=== PATIENT | male | born 1985 | race Caucasian/White ===

== ENCOUNTER 2016-10-27 14:32 | Inpatient (IN) | payer MEDICAID ==
[2016-10-27 15:16] LABS: BASO # 0.1 K/uL (0.0-0.2); BASO % 0.8 % (0.0-2.0); EOS # 0.1 K/uL (0.0-0.7); EOS % 1.5 % (0.0-4.0); HEMATOCRIT 47.9 % (35.0-51.0); LYMPH # 2.1 K/uL (1.0-4.3); LYMPH % 21.3 % (20.0-40.0); MEAN CELL VOLUME 83.2 fL (80.0-94.0); MEAN CORPUSCULAR HEMOGLOBIN 27.9 pg (27.0-31.0); MEAN CORPUSCULAR HGB CONC 33.5 g/dL (33.0-37.0); MEAN PLATELET VOLUME 10.2 fL (7.2-11.7); MONO # 1.1 K/uL (0.0-0.8); MONO % 11.8 % (0.0-10.0); NRBC % 0.1 % (0.0-2.0); RED CELL DISTRIBUTION WIDTH 12.9 % (11.5-14.5); WHITE BLOOD COUNT 9.7 K/uL (4.8-10.8)
[2016-10-27 15:30] LABS: CHLORIDE 99 mmol/L (98-107)
[2016-10-27 15:31] LABS: POTASSIUM 4.1 mmol/L (3.6-5.2); SODIUM 141 mmol/L (132-148)
[2016-10-27 15:33] LABS: ALB/GLOB RATIO 1.2 (1.0-2.1); ALKALINE PHOSPHATASE 101 U/L (38-126); AST/SGOT 16 U/L (17-59); BILIRUBIN,TOTAL 0.9 mg/dL (0.2-1.3); CARBON DIOXIDE 24 mmol/L (22-30); GFR AFRICAN-AMERICAN > 60; TOTAL PROTEIN 8.3 g/dL (6.3-8.3)
[2016-10-27 15:34] LABS: ALT/SGPT 26 U/L (21-72); BLOOD UREA NITROGEN 10 mg/dL (9-20); GLUCOSE,RANDOM 97 mg/dL (75-110)
[2016-10-27 15:38] LABS: ALCOHOL SERUM < 10 mg/dl (0-10)
--- NOTE | 2016-10-27 15:40 | C.PDOC ---
History Of Present Illness 31-year-old male, presents to the emergency department with complaints of restlessness. Patient states "I haven't slept in ten days, and I just want to sleep for 48 hours." Patient denies suicidal ideation, but is unclear whether he wants to harm others. Patient notes that he is hearing something in his head. No other complaints at this time. He states that he has no pain or discomfort. He does not answer question with any detail. 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 He seems very internally preoccupied with a flat affect. Time Seen by Provider: 10/27/16 14:38 Chief Complaint (Nursing): Psychiatric Evaluation History Per: Patient History/Exam Limitations: no limitations Onset/Duration Of Symptoms: Days Current Symptoms Are (Timing): Still Present Past Medical History Reviewed: Historical Data, Nursing Documentation, Vital Signs Vital Signs: Last Vital Signs Temp 97.4 F L 10/27/16 14:39 Pulse 103 H 10/27/16 14:39 Resp 20 10/27/16 14:39 BP 131/93 H 10/27/16 14:39 Pulse Ox 96 10/27/16 16:57 Family History: States: Unknown Family Hx - Social History Hx Alcohol Use: No Hx Substance Use: No - Immunization History Hx Tetanus Toxoid Vaccination: No Hx Influenza Vaccination: No Hx Pneumococcal Vaccination: No Review Of Systems Except As Marked, All Systems Reviewed And Found Negative. Constitutional: Negative for: Fever, Chills Cardiovascular: Negative for: Chest Pain, Palpitations Skin: Negative for: Rash Neurological: Negative for: Headache, Dizziness Psych: Negative for: Suicidal ideation Physical Exam - Physical Exam Appears: Non-toxic, No Acute Distress, Other (flat affect) Skin: Warm, Dry, No Rash Head: Atraumatic, Normacephalic Eye(s): bilateral: Normal Inspection, PERRL Nose: Normal Oral Mucosa: Moist Lips: Normal Appearing Neck: Normal ROM Cardiovascular: Rhythm Regular Respiratory: Normal Breath Sounds, No Accessory Muscle Use Extremity: Normal ROM Neurological/Psych: Oriented x3, Normal Speech ED Course And Treatment - Laboratory Results Result Diagrams: 10/27/16 15:12 10/27/16 15:12 Lab Interpretation: No Acute Changes O2 Sat by Pulse Oximetry: 96 Pulse Ox Interpretation: Normal - CT Scan/US CT head Other Rad Studies (CT/US): Read By Radiologist, Radiology Report Reviewed CT/US Interpretation: Accession No. : [id number]. Patient Name / ID : ADI [id number] / [id number]. Exam Date : 10/27/2016 15:59:22 ( Approved ). Study Comment : Sex / Age : M / 31Y. Creator : Meena Moy MD. Dictator : Meena Moy MD. Hearing Health Technician : Tanning Wheel Filler : Meena Moy MD. Approver2 : Report Date : 10/27/2016 16:35:14. My Comment : . PROCEDURE: CT HEAD WITHOUT CONTRAST. HISTORY: altered behavior, ? hallucinating. COMPARISON: None available. TECHNIQUE: Axial computed tomography images were obtained through the head/brain without intravenous contrast. Radiation dose: Total exam DLP = 960.17 mGy-cm. This CT exam was performed using one or more of the following dose reduction techniques: Automated exposure control, adjustment of the mA and/or kV according to patient size, and/or use of iterative reconstruction technique. FINDINGS: HEMORRHAGE: No intracranial hemorrhage. BRAIN: No mass effect or edema. No atrophy or chronic microvascular ischemic changes. VENTRICLES: No hydrocephalus. CALVARIUM: Unremarkable. PARANASAL SINUSES: Mucosal thickening of the ethmoid air cells, bilateral frontal sinuses, and bilateral maxillary sinuses. MASTOID AIR CELLS: Unremarkable as visualized. No inflammatory changes. OTHER FINDINGS: Suspect residual turbinate with associated localized mucosal thickening within the left nasal fossa. Polyp cannot be entirely excluded. IMPRESSION: No acute intracranial pathology identified. Mucosal thickening of the included portions paranasal sinuses ; correlate clinically for history of sinusitis. Suspect residual turbinate with associated localized mucosal thickening within the left nasal fossa. Polyp cannot be entirely excluded. Recommend outpatient correlation with direct visualization if not already performed. Progress Note: Patient evaluated by crisis and accepted for psych admission by Dr Terrell. Reevaluation Time: 18:41 Reassessment Condition: Unchanged Disposition - Disposition Disposition: HOSPITALIZED Disposition Time: 18:41 Condition: STABLE - POA Present On Arrival: None - Clinical Impression Clinical Impression: Schizophrenia - Scribe Statement The provider has reviewed the documentation as recorded by the Brooklynibmariana Prince All medical record entries made by the Brooklynibmariana were at my direction and personally dictated by me. I have reviewed the chart and agree that the record accurately reflects my personal performance of the history, physical exam, medical decision making, and the department course for this patient. I have also personally directed, reviewed, and agree with the discharge instructions and disposition.
--- NOTE | 2016-10-27 16:36 | CT ---
PROCEDURE: CT HEAD WITHOUT CONTRAST. HISTORY: altered behavior, ? hallucinating COMPARISON: None available. TECHNIQUE: Axial computed tomography images were obtained through the head/brain without intravenous contrast. Radiation dose: Total exam DLP = 960.17 mGy-cm. This CT exam was performed using one or more of the following dose reduction techniques: Automated exposure control, adjustment of the mA and/or kV according to patient size, and/or use of iterative reconstruction technique. FINDINGS: HEMORRHAGE: No intracranial hemorrhage. BRAIN: No mass effect or edema. No atrophy or chronic microvascular ischemic changes. VENTRICLES: No hydrocephalus. CALVARIUM: Unremarkable. PARANASAL SINUSES: Mucosal thickening of the ethmoid air cells, bilateral frontal sinuses, and bilateral maxillary sinuses. MASTOID AIR CELLS: Unremarkable as visualized. No inflammatory changes. OTHER FINDINGS: Suspect residual turbinate with associated localized mucosal thickening within the left nasal fossa. Polyp cannot be entirely excluded. IMPRESSION: No acute intracranial pathology identified. Mucosal thickening of the included portions paranasal sinuses ; correlate clinically for history of sinusitis. Suspect residual turbinate with associated localized mucosal thickening within the left nasal fossa. Polyp cannot be entirely excluded. Recommend outpatient correlation with direct visualization if not already performed.
[2016-10-27 17:15] LABS: RBC URINE 3 /hpf (0-3); URINE BACTERIA OCC (<OCC); URINE BILIRUBIN NEGATIVE (NEGATIVE); URINE BLOOD NEGATIVE (NEGATIVE); URINE COLOR Amber (YELLOW); URINE GLUCOSE (UA) NORMAL (Normal); URINE KETONE TRACE mg/dL (NEGATIVE); URINE LEUKOCYTE ESTERASE NEG Leu/uL (Negative); URINE PROTEIN 1+ mg/dL (NEGATIVE); WBC URINE 3 /hpf (0-5)
[2016-10-27 19:24] VITALS: O2SAT 98
--- NOTE | 2016-10-28 10:33 | PCM.PSYCH ---
Initial Psychiatric Evaluation - Initial Psychiatric Evaluation Type of Admission: Voluntary Legal Status: Capacity Chief Complaint (in patient's own words): I couldn't sleep for the past 10 days. History of Present Illness and Precipitating Events: Patient is a 31-year-old male, who currently lives at a hotel, came to the ED, saying that he couldn't sleep for past 10 days. Pt appeared very delusional and disorganized. Patient remained disorganized and internally preoccupied throughout the interview. patient was interviewed with an automotive parts interpreter. He was superficially cooperative and guarded about the details. As per the patient he has never admitted to any psychiatric hospital. He appeared delusional, disheveled, suspicious and psychotic. Patient suddenly stopped answering qs and asked, 'are you calling police on me'. As per the staff, patient remained up last night, pacing back and forth in the hallways and appeared anxious. He asked the nurse last night to give him injectable medications. He appears to have thought blockings. However he denies any auditory hallucinations or visual hallucinations. Patient reports persecutory delusions that someone is following him and his roommate were checking his luggage, thats why he moved to a hotel. He reports irritability, anxiety and agitation. He denies any drinking or any substance abuse. Past medical history None reported Current Medications: Active Medications Generic Name Dose Route Start Last Admin Trade Name Freq PRN Reason Stop Dose Admin Diphenhydramine HCl 50 mg 10/27/16 19:08 10/28/16 10:13 Benadryl PO 50 mg Q6 PRN Administration Anxiety Diphenhydramine HCl 50 mg 10/27/16 20:51 Benadryl IM Q6 PRN Agitation Haloperidol 5 mg 10/27/16 19:08 10/27/16 20:18 Haldol PO 5 mg Q6 PRN Administration Agitation Haloperidol 5 mg 10/28/16 10:00 10/28/16 10:13 Haldol PO 5 mg BID NIC Administration Haloperidol Lactate 5 mg 10/27/16 20:51 Haldol IM Q6 PRN Agitation Hydroxyzine HCl 25 mg 10/27/16 19:08 Atarax PO Q6 PRN Anxiety Ibuprofen 600 mg 10/27/16 19:08 Motrin Tab PO Q6 PRN Pain, moderate (4-7) Lorazepam 1 mg 10/27/16 19:08 10/28/16 10:13 Ativan PO 1 mg Q6 PRN Administration Anxiety Lorazepam 2 mg 10/27/16 20:51 Ativan IM Q6H PRN Anxiety Nicotine 1 patch 10/28/16 10:00 10/28/16 10:13 Nicoderm Cq TD 1 patch DAILY NIC Administration Trazodone HCl 50 mg 10/27/16 19:08 Desyrel PO HS PRN Insomnia Past Psychiatric History - Past Psychiatric History Previous Treatment History: None Pertinent Medical Hx (Current Medical&Sleep Prob, Allergies): Allergies Allergy/AdvReac Type Severity Reaction Status Date / Time PORK AdvReac NAUSEA Verified 10/27/16 20:07 No Known Home Med 10/27/16 Review of Systems - Review of Systems All systems: reviewed and no additional remarkable complaints except - Psychiatric Psychiatric: Anxiety, Irritability, Paranoia Mental Status Examination - Personal Presentation Personal Presentation: Looks older than stated age - Affect Affect: Constricted, Depressed - Motor Activity Motor Activity: Psychomotor Agitation - Reliability in Providing Information Reliability in Providing Information: Poor, due to alteration in thoughts, Poor , due to altered mood - Speech Speech: Disorganized - Mood Mood: Depressed, Anxious - Formal Thought Process Formal Thought Process: Delusions, Paranoia, Loosening of associations - Obsessions/Compulsions Obsessions: No Compulsions: No - Cognitive Functions Orientation: Person, Place, Situation, Time Sensorium: Alert Attention/Concentration: Attentive Abstract Thinking: [place] Estimate of Intelligence: Below average Judgement: Imparied, as evidence by: Poor judgement, Imparied, as evidence by: Lack of insight into illness - Risk Risk: Diminished functioning - Strength & Assets Inventory Strength & Assets Inventory: Life experience, Cooperative - Limitations Limitations: Living alone DSM 5 DX - DSM 5 DSM 5 Diagnosis: Brief psychotic disorder rule out schizophrenia paranoid type continuous - Recommended/Plan of Treatment Treatment Recommendations and Plan of Treatment: Brief psychotic disorder rule out schizophrenia paranoid type continuous CBT Psychoeducation Supportive therapy, group therapy, individual therapy Haldol 5 mg by mouth twice a day Cogentin 1 mg by mouth twice a day Trazodone 50 mg by mouth daily at bedtime Klonopin 0.5 mg by mouth twice a day Nicotine use disorder nicotine patch - Smoking Cessation Smoking Cessation Initiated: No
[2016-10-28] MEDS: DiphenhydrAMINE 50 mg/ml Inj IM PRN (16:49)
--- NOTE | 2016-10-29 09:23 | PCM.PYCHPN ---
Psychiatric Progress Note - Psychiatric Progress Note Patient seen today, length of contact: 17 min Patient Chief Complaint: I want to go home Problems Identified/Issues Discussed: Pt seen and evaluated. As per the staff, yesterday pt became extremely aggressive and agitated and threatened to leave. He became extremely paranoid and internally preoccupied with the discharge that he broke the door. Security was called and put was put on 4 point restraints and I/M meds were given. Medication Change: Yes (Increase Haldol, Start Depakote) Medical Record Reviewed: Yes Mental Status Examination - Cognitive Function Orientation: Person, Place, Situation, Time Memory: Intact Attention: Poor Concentration: Poor Association: Loose Fund of Knowledge: Poor - Mood Mood: Anxious - Affect Affect: Broad - Speech Speech: Pressured - Formal Thought Process Formal Thought Process: Hallucinations, Delusions, Paranoia, Loosening of associations - Suicidal Ideation Suicidal Ideation: No - Homicidal Ideation Homicidal Ideation: No Goal/Treatment Plan - Goal/Treatment Plan Need for Continued Stay: Discharge may exacerbated symptoms, Severe functional impairment Progress Toward Problem(s) and Goals/Treatment Plan: Brief psychotic disorder rule out schizophrenia paranoid type continuous CBT Psychoeducation Supportive therapy, group therapy, individual therapy Haldol 10 mg by mouth twice a day Cogentin 1 mg by mouth twice a day Trazodone 50 mg by mouth daily at bedtime Klonopin 1 mg by mouth twice a day Depakote 500 mg PO BID Nicotine use disorder nicotine patch - Smoking Cessation Smoking Cessation Initiated: Yes
[2016-10-29] MEDS: Divalproex 500 mg DR Tab PO SCH ×2 (10:13→19:06)
[2016-10-29] MEDS: Amoxicillin-Clav 500-125 mg Tab PO SCH (21:59)
[2016-10-30] MEDS: DiphenhydrAMINE 50 mg/ml Inj IM PRN (00:45)
--- NOTE | 2016-10-30 06:22 | CP.PCM.CON ---
History of Present Illness - History of Present Illness History of Present Illness: Surgery: Dr. Contreras CC: jeri-rectal abscess HPI: Patient is a 31 y/o male who is a poor historian currently admitted to the psychiatric [facility] for psychotic thoughts and behavior. Patient started to complain of pain near the during his current stay. Most history obtained from chart which is minimal. He denies f/c. He reports good appetite. Denies diarrhea or constipation. PMH: denies PSH: denies Review of Systems - Review of Systems Systems not reviewed;Unavailable: Psychotic Past Patient History - Past Social History Smoking Status: Heavy Smoker > 10 Cigarettes Daily - CARDIAC Hx Cardiac Disorders: No - PULMONARY Hx Respiratory Disorders: No - NEUROLOGICAL Hx Neurological Disorder: No - HEENT Hx HEENT Problems: No - RENAL Hx Chronic Kidney Disease: No - ENDOCRINE/METABOLIC Hx Endocrine Disorders: No - HEMATOLOGICAL/ONCOLOGICAL Hx Blood Disorders: No - INTEGUMENTARY Hx Dermatological Problems: No - MUSCULOSKELETAL/RHEUMATOLOGICAL Hx Musculoskeletal Disorders: No - GASTROINTESTINAL Hx Gastrointestinal Disorders: No - GENITOURINARY/GYNECOLOGICAL Hx Genitourinary Disorders: No - PSYCHIATRIC Hx Substance Use: No - SURGICAL HISTORY Hx Surgeries: Yes Hx Eye Surgery: Yes Other/Comment: Nose sx - ANESTHESIA Hx Anesthesia: Yes Hx Anesthesia Reactions: No Meds Allergies/Adverse Reactions: Allergies Allergy/AdvReac Type Severity Reaction Status Date / Time PORK AdvReac NAUSEA Verified 10/27/16 20:07 - Medications Medications: Current Medications Amoxicillin/Clavulanate Potassium (Augmentin 500 Mg-125 Mg Tab) 1 tab PO Q12H NIC Last Admin: 10/29/16 21:59 Dose: 1 tab Benztropine Mesylate (Cogentin) 1 mg PO BID NIC Last Admin: 10/29/16 19:06 Dose: 1 mg Benztropine Mesylate (Cogentin) 1 mg PO Q6 PRN PRN Reason: Anaphylaxis Clonazepam (Klonopin) 1 mg PO TID NIC Last Admin: 10/29/16 19:06 Dose: 1 mg Diphenhydramine HCl (Benadryl) 50 mg PO Q6 PRN PRN Reason: Anxiety Last Admin: 10/29/16 04:41 Dose: 50 mg Diphenhydramine HCl (Benadryl) 50 mg IM Q6 PRN PRN Reason: Agitation Last Admin: 10/30/16 00:45 Dose: 50 mg Divalproex Sodium (Depakote Dr) 500 mg PO BID [facility] Last Admin: 10/29/16 19:06 Dose: 500 mg Haloperidol (Haldol) 5 mg PO Q6 PRN PRN Reason: Agitation Last Admin: 10/27/16 20:18 Dose: 5 mg Haloperidol (Haldol) 10 mg PO BID [facility] Last Admin: 10/29/16 19:06 Dose: 10 mg Haloperidol Lactate (Haldol) 5 mg IM Q6 PRN PRN Reason: Agitation Last Admin: 10/30/16 03:26 Dose: 5 mg Hydroxyzine HCl (Atarax) 25 mg PO Q6 PRN PRN Reason: Anxiety Ibuprofen (Motrin Tab) 600 mg PO Q6 PRN PRN Reason: Pain, moderate (4-7) Nicotine (Nicoderm Cq) 1 patch TD DAILY [facility] Last Admin: 10/29/16 13:30 Dose: 1 patch Trazodone HCl (Desyrel) 50 mg PO HS PRN PRN Reason: Insomnia Physical Exam - Constitutional Appears: Non-toxic, No Acute Distress - Head Exam Head Exam: ATRAUMATIC, NORMOCEPHALIC - Eye Exam Eye Exam: EOMI, Normal appearance - ENT Exam ENT Exam: Mucous Membranes Moist - Respiratory Exam Respiratory Exam: NORMAL BREATHING PATTERN. absent: Respiratory Distress - Cardiovascular Exam Cardiovascular Exam: REGULAR RHYTHM. absent: Tachycardia - Rectal Exam Additional comments: normal anus, good tone. small dime size abscess noted to left of rectum in gluteal crease. appears to be drainaing purulent serous fluid at this time. mildly tender to palpation around abscess. Extremely tender w/ palpated directly over abscess opening. small amount of fluctuance noted. Results - Vital Signs Recent Vital Signs: Last Vital Signs Temp 97.4 F L 10/29/16 11:11 Pulse 85 10/29/16 11:11 Resp 20 10/29/16 11:11 BP 108/74 10/29/16 11:11 Pulse Ox 98 10/27/16 19:24 - Labs Result Diagrams: 10/27/16 15:12 10/27/16 15:12 Assessment & Plan - Assessment and Plan (Free Text) Assessment: 31 y/o male currently being treated for psychotic episode, on 1:1 supervision for violent behavior, w/ small jeri-rectal abscess, spontaneously draining Plan: -provide warm compress for patient to assist w/ spontaneous drainage -start patient on po antibiotics -monitor for fever or increasing rectal pain -patient current mental state, bedside procedure high risk -if abscess does not continue to drain may need surgical drainage -will follow for now -d/w Dr. Ben Garcia PGY1
[2016-10-30 08:06] VITALS: RESP 18; TEMP 97.8
[2016-10-30] MEDS: Amoxicillin-Clav 500-125 mg Tab PO SCH (09:30)
[2016-10-30] MEDS: Divalproex 500 mg DR Tab PO SCH (09:31)
--- NOTE | 2016-10-30 10:26 | PCM.PYCHPN ---
Psychiatric Progress Note - Psychiatric Progress Note Patient seen today, length of contact: 17 min Patient Chief Complaint: i can not stay here any more. Problems Identified/Issues Discussed: Pt seen and evaluated. pt was put on 1:1 observation. As per the staff, pt remained delusional, paranoid and disorganized. However, he was less aggressive and less agitated than before. He remained internally preoccupied with the discharge. Pt will be screened by the [facility] screeners today for the possibility of involuntary admission, since pt is partially compliant with the treatment recommendations. Medication Change: Yes (Increase Depakote) Medical Record Reviewed: Yes Mental Status Examination - Cognitive Function Orientation: Person, Place, Situation, Time Memory: Intact Attention: Poor Concentration: Poor Association: Loose Fund of Knowledge: Poor - Mood Mood: Anxious - Affect Affect: Broad - Speech Speech: Pressured - Formal Thought Process Formal Thought Process: Hallucinations, Delusions, Paranoia, Loosening of associations - Suicidal Ideation Suicidal Ideation: No - Homicidal Ideation Homicidal Ideation: No Goal/Treatment Plan - Goal/Treatment Plan Need for Continued Stay: Discharge may exacerbated symptoms, Severe functional impairment Progress Toward Problem(s) and Goals/Treatment Plan: 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
--- NOTE | 2016-10-30 10:54 | RAD ---
HISTORY: transfer to [facility] COMPARISON: No prior. FINDINGS: LUNGS: Mild venous congestion. PLEURA: No significant pleural effusion identified, no pneumothorax apparent. CARDIOVASCULAR: Normal. OSSEOUS STRUCTURES: No significant abnormalities. VISUALIZED UPPER ABDOMEN: Normal. OTHER FINDINGS: None. IMPRESSION: Mild venous congestion.
[2016-10-30 16:05] VITALS: BP 118/78; PULSE 93
--- NOTE | 2016-10-31 16:02 | PCM.PYCHDC ---
Mental Status Examination - Mental Status Examination Orientation: Person, Place, Situation, Time Memory: Intact Mood: Anxious Affect: Constricted Speech: Soft Attention: Poor Concentration: Poor Association: Loose Fund of Knowledge: Poor Formal Thought Process: Delusions, Paranoia, Loosening of associations Description of patient's judgement and insight: Poor, impaired Psychotic Thoughts and Behaviors: denies any auditory or visual hallucinations Suicidal Ideation: No Current Homicidal Ideation?: No Discharge Summary - Discharge Note Reason for Hospitalization: Patient is a 31-year-old male, who currently lives at a hotel, came to the ED, saying that he couldn't sleep for past 10 days. Pt appeared very delusional and disorganized. Patient remained disorganized and internally preoccupied throughout the interview. patient was interviewed with an hourly sign language interpreter. He was superficially cooperative and guarded about the details. As per the patient he has never admitted to any psychiatric hospital. He appeared delusional, disheveled, suspicious and psychotic. Patient suddenly stopped answering qs and asked, 'are you calling police on me'. As per the staff, patient remained up last night, pacing back and forth in the hallways and appeared anxious. He asked the nurse last night to give him injectable medications. He appears to have thought blockings. However he denies any auditory hallucinations or visual hallucinations. Patient reports persecutory delusions that someone is following him and his roommate were checking his luggage, thats why he moved to a hotel. He reports irritability, anxiety and agitation. He denies any drinking or any substance abuse. Consultations:: List each consultation separately and include: 1. Reason for request. 2. Findings. 3. Follow-up Summary of Hospital Course include:: 1. Description of specific treatment plan utilized for patients during their course of treatmen. 2. Summarize the time- course for resolution of acute symptoms and/or regressed behaviors. 3. Describe issues identified and worked on during hospitalization. 4. Describe medication utilized. 5. Describe medical problems identified and treated. 6. Reassessment of suicide risk Summary of Hospital Course: During the course of his stay, patient (pt) became increasingly irritable, paranoid and delusional. As a result patient was screened by [facility] screeners. He was accepted by [facility] and was discharged to their involuntary unit. - Final Diagnosis (DSM 5) Condition upon Discharge: STABLE DSM 5: Brief psychotic disorder rule out schizophrenia paranoid type continuous Disposition: DISCHARGE TO [facility] Follow-up Treatment Plan: Education: Pt was educated and counseled about the risks and benefits of taking and not taking medications. Pt was educated and counseled about the risks of drinking and abusing drugs. Pt was educated and counseled to go to the ER or call 911 if pt develop suicidal ideation or homicidal ideation, worsening of symptoms or severe side effects of the meds. - Smoking Cessation Smoking Cessation Medication prescribed: No - Antipsychotic Medications Pt discharged on 2 or more routine antipsychotic medications: No
--- NOTE | 2016-11-13 14:38 | CARD ---
APPROVED REPORT EKG Measurement Heart [id number] <Conclusion> Normal sinus rhythm Normal ECG
== END 2016-10-30 16:20 | disposition short-term general hospital (02) | DRG 430 ==
LOC: C.ER 14:32 → C.5E 18:43
PROVIDERS: ADMIT Psychiatry & Neurology Psychiatry; ATTEND Psychiatry & Neurology Psychiatry
PROC: GZ3ZZZZ Medication Management (ICD-10-PCS; principal; 2016-10-27)
PROC: GZHZZZZ Group Psychotherapy (ICD-10-PCS; 2016-10-27)
PROC: GZ56ZZZ Individual Psychotherapy, Supportive (ICD-10-PCS; 2016-10-27)
DX: F23 Brief psychotic disorder (principal); F20.0 Paranoid schizophrenia; K61.1 Rectal abscess; F17.210 Nicotine dependence, cigarettes, uncomplicated